=== PATIENT | female | born 2000 | race Hispanic/Latino ===

== ENCOUNTER 2024-03-01 17:02 | Day surgery (SDC) | payer OTHER ==
[2024-03-01] MEDS ORDERED: hydrALAZINE 20 MG/ML VIAL SLOW IVP PRN (17:48)
== END 2024-03-01 20:15 | disposition home or self-care (01) ==
LOC: CSHLD/OP 17:02
PROVIDERS: ATTEND Family Medicine
DX: O36.8120 Decreased fetal movements, second trimester, not applicable or unspecified (principal); O99.013 Anemia complicating pregnancy, third trimester; O09.33 Supervision of pregnancy with insufficient antenatal care, third trimester; O99.283 Endocrine, nutritional and metabolic diseases complicating pregnancy, third trimester; E03.9 Hypothyroidism, unspecified; O99.213 Obesity complicating pregnancy, third trimester; O99.613 Diseases of the digestive system complicating pregnancy, third trimester; K21.9 Gastro-esophageal reflux disease without esophagitis; O99.891 Other specified diseases and conditions complicating pregnancy; R82.71 Bacteriuria; Z3A.29 29 weeks gestation of pregnancy
CPT/HCPCS: 76819; 99282

== ENCOUNTER 2024-05-02 09:26 | Day surgery (SDC) | payer OTHER ==
[2024-05-02] MEDS ORDERED: hydrALAZINE 20 MG/ML VIAL SLOW IVP PRN (10:04)
== END 2024-05-02 13:15 | disposition home health service (06) ==
LOC: CSHLD/OP 09:26
PROVIDERS: ATTEND Family Medicine
DX: O46.93 Antepartum hemorrhage, unspecified, third trimester (principal); O99.013 Anemia complicating pregnancy, third trimester; O99.891 Other specified diseases and conditions complicating pregnancy; R82.71 Bacteriuria; O09.33 Supervision of pregnancy with insufficient antenatal care, third trimester; Z79.899 Other long term (current) drug therapy; Z3A.39 39 weeks gestation of pregnancy
CPT/HCPCS: 99282